=== PATIENT | female | born 1990 | race Caucasian/White ===

== ENCOUNTER 2021-04-30 11:29 | Emergency (ER) | payer OTHER ==
[2021-04-30 11:37] VITALS: TEMP 98.2; BMI 20.5
[2021-04-30] MEDS ORDERED: SODIUM CHLORIDE 1,000 ML IV STA (12:08)
[2021-04-30] MEDS ORDERED: ONDANSETRON 4 MG/2 ML VIAL IVPUSH ONE (12:08)
[2021-04-30] MEDS ORDERED: ACETAMINOPHEN 1000 MG/100 ML BAG IVPB ONE (12:08)
[2021-04-30] MEDS ORDERED: FAMOTIDINE 20 MG/50 ML IVPB 20 MG/50 ML MG IVPB ONE ×2 (12:30→12:37)
[2021-04-30] MEDS ORDERED: ONDANSETRON 4 MG/2 ML VIAL ONE (12:36)
[2021-04-30] MEDS ORDERED: ACETAMINOPHEN INJECTION 100 ML IVPB ONE (12:37)
[2021-04-30 12:48] LABS: BASO % 0.3 % (0-2.0); EOS % 0.1 % (0-4.5); HEMATOCRIT 42.4 % (32.4-45.2); HEMOGLOBIN 14.6 GM/dL (10.7-15.3); LYMPH % 11.1 % (8-40); MCH 30.1 pg (25.7-33.7); MCHC 34.5 g/dl (32.0-36.0); MEAN CELL VOLUME 87.3 fl (80-96); MEAN PLT VOLUME 10.8 fl (7.5-11.1); MONO % 7.1 % (3.8-10.2); NEUT % 81.4 % (42.8-82.8); PLATELET COUNT 168 10^3/uL (134-434); RBC 4.86 M/mm3 (3.60-5.2); RDW 13.3 % (11.6-15.6)
[2021-04-30 12:59] LABS: CALCIUM 9.6 mg/dL (8.5-10.1)
[2021-04-30 13:00] LABS: ALBUMIN 4.7 g/dl (3.4-5.0); BLOOD UREA NITROGEN 14.6 mg/dL (7-18)
[2021-04-30 13:05] LABS: BILIRUBIN,TOTAL 0.8 mg/dL (0.2-1)
[2021-04-30 13:10] LABS: EPI CELLS 72.6 /uL (0-25.1); HYALINE CASTS 23.58 /uL (0-3.1); URINE BACTERIA 580.3 /uL (0-1359); URINE RBC 12.6 /uL (0-23.9); URINE WBC 28.5 /uL (0-25.8)
[2021-04-30 13:11] LABS: URINE APPEARANCE CLOUDY; URINE BILIRUBIN NEGATIVE (NEGATIVE); URINE COLOR DK YELLOW; URINE GLUCOSE (UA) NEGATIVE (NEGATIVE); URINE KETONE 3+ (NEGATIVE); URINE LEUK ESTERASE NEGATIVE (NEGATIVE); URINE NITRITE NEGATIVE (NEGATIVE); URINE PROTEIN 2+ (NEGATIVE)
[2021-04-30] MEDS ORDERED: MAG HYDROX/AL HYDROX/SIMETH 30 ML UNIT-DOSE CUP PO ONE (13:16)
[2021-04-30] MEDS ORDERED: MAG HYDROX/AL HYDROX/SIMETH 30 ML UNIT-DOSE CUP ONE (13:18)
[2021-04-30 13:24] VITALS: BP 132/75; PULSE 85
== END 2021-04-30 13:45 | disposition home or self-care (01) ==
LOC: JER 11:29
PROC: 3E033GC Introduction of Other Therapeutic Substance into Peripheral Vein, Percutaneous Approach (ICD-10-PCS; principal; 2021-04-30)
DX: R11.10 Vomiting, unspecified (principal); E86.0 Dehydration; R68.83 Chills (without fever); R25.2 Cramp and spasm
CPT/HCPCS: 36415; 80053; 81003; 83690; 84703; 85025; 87086; 99284-25

== ENCOUNTER 2021-06-25 20:06 | Emergency (ER) | payer OTHER ==
[2021-06-25 20:15] VITALS: BP 108/75; PULSE 84; TEMP 97.9; BMI 21.4
[2021-06-25] MEDS ORDERED: KETOROLAC TROMETHAMINE 30 MG/1 ML VIAL IM ONE (21:48)
[2021-06-25] MEDS ORDERED: LIDOCAINE 5% TOPICAL PATCH TP ONE (21:52)
[2021-06-25] MEDS ORDERED: KETOROLAC TROMETHAMINE 30 MG/1 ML VIAL ONE (21:52)
[2021-06-25] MEDS ORDERED: LIDOCAINE 5% TOPICAL PATCH ONE (21:53)
[2021-06-26] MEDS ORDERED: LIDOCAINE PATCH REMOVAL MC SCH (10:00)
== END 2021-06-25 23:16 | disposition home or self-care (01) ==
LOC: JERFT 20:06
PROC: 3E0233Z Introduction of Anti-inflammatory into Muscle, Percutaneous Approach (ICD-10-PCS; principal; 2021-06-25)
DX: M54.42 Lumbago with sciatica, left side (principal)
CPT/HCPCS: 72100-TC-FY; 99284-25

== ENCOUNTER 2023-04-02 17:55 | Emergency (ER) | payer OTHER ==
[2023-04-02 19:07] VITALS: BP 99/64; PULSE 90; RESP 18; TEMP 98; BMI 22.6
[2023-04-02] MEDS ORDERED: IBUPROFEN 600 MG TABLET (FP) PO ONE (20:15)
[2023-04-02] MEDS: IBUPROFEN 600 MG TABLET (FP) PO ONE (20:16)
== END 2023-04-02 20:19 | disposition home or self-care (01) ==
LOC: JER 17:55 → JERFT 17:55
DX: S69.91XA Unspecified injury of right wrist, hand and finger(s), initial encounter (principal); V00.831A Fall from motorized mobility scooter, initial encounter
CPT/HCPCS: 73130-TC-RT-FY; 99283-25

== ENCOUNTER 2023-06-24 13:39 | Emergency (ER) | payer OTHER ==
[2023-06-24 13:42] VITALS: BP 105/70; PULSE 71; RESP 18; TEMP 98.2; BMI 22.4
[2023-06-24] MEDS ORDERED: diazePAM 5 MG TABLET ONE (15:59)
[2023-06-24] MEDS ORDERED: DEXAMETHASONE SOD PHOSPHATE 10 MG/1 ML VIAL ONE (16:00)
[2023-06-24] MEDS ORDERED: KETOROLAC TROMETHAMINE 30 MG/1 ML VIAL ONE (16:00)
[2023-06-24] MEDS: KETOROLAC TROMETHAMINE 30 MG/1 ML VIAL IVPUSH ONE (16:04)
[2023-06-24] MEDS: diazePAM 5 MG TABLET PO ONE (16:04)
[2023-06-24] MEDS: DEXAMETHASONE SOD PHOSPHATE 10 MG/1 ML VIAL IVPUSH ONE (16:04)
== END 2023-06-24 16:22 | disposition home or self-care (01) ==
LOC: JERFT 13:39
PROC: 3E033GC Introduction of Other Therapeutic Substance into Peripheral Vein, Percutaneous Approach (ICD-10-PCS; principal; 2023-06-24)
PROC: 3E0333Z Introduction of Anti-inflammatory into Peripheral Vein, Percutaneous Approach (ICD-10-PCS; 2023-06-24)
DX: M54.12 Radiculopathy, cervical region (principal)
CPT/HCPCS: 99284-25; J1100